=== PATIENT | female | born 2000 | race Caucasian/White ===

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

== ENCOUNTER 2021-07-20 22:15 | Emergency (ER) | payer OTHER, MEDICAID ==
[~2021-07-20] VITALS: Ht 170.2 cm; Wt 74.8 kg
[2021-07-20] MEDS ORDERED: TESSALON PERLE100 MG PO (23:19)
[2021-07-20 23:29] VITALS: BP 117/60
--- NOTE | 2021-07-21 10:40 | EKG ---
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
== END 2021-07-20 23:31 | disposition home or self-care (01) ==
LOC: M.ERS 22:15
DX: U07.1 COVID-19 (principal); B34.9 Viral infection, unspecified